=== PATIENT | male | born 1990 | race Caucasian/White ===

== ENCOUNTER 2017-03-10 07:41 | Outpatient (CLI) | payer BC ==
--- NOTE | 2017-03-10 11:44 | NM ---
HEPATOBILIARY SCAN: DATE: 03/10/17. HISTORY: A 26-year-old male with right upper quadrant pain. TECHNIQUE: Following the intravenous administration of 4.9 mCi of Technetium 99m labeled mebrofenin, anterior pl nedra imaging is obtained over 60 minutes. Upon visualization of the gallbladder, the patient ingeste d 8 ounces of Boost to evaluate the gallbladder ejection fraction. FINDINGS: Post injection imaging demonstrates prompt radiotracer activity within the liver. Biliary activity i s seen by 5 minutes. Gallbladder activity is seen by 10 minutes. Gallbladder ejection fraction is c alculated at 76%, within normal limits. IMPRESSION: Scintigraphic evidence of cystic duct patency. Normal gallbladder ejection fraction. POS: JOSE
== END 2017-03-10 07:42 | disposition home or self-care (01) ==
LOC: NM 07:41
PROVIDERS: ATTEND Internal Medicine
DX: R10.11 Right upper quadrant pain (principal)
CPT/HCPCS: 78227; A9537

== ENCOUNTER 2020-01-25 11:18 | Outpatient (CLI) | payer OTHER ==
--- NOTE | 2020-01-25 15:02 | ULT ---
GALLBLADDER ULTRASOUND: Date: 01/25/2020 INDICATION: Right upper quadrant pain. FINDINGS: Gallbladder has a normal sonographic appearance. No evidence of gallstones. Common bile duct normal caliber. Visualized liver unremarkable. Right kidney is imaged and is unremarkable. Pancreas mostly obscured, but unremarkable as visualized. IMPRESSION: Unremarkable gallbladder ultrasound. POS: [facility]
== END 2020-01-25 11:19 | disposition home or self-care (01) ==
LOC: SCSULT 11:18
PROVIDERS: ATTEND Family Medicine
DX: R10.11 Right upper quadrant pain (principal)
CPT/HCPCS: 76705